=== PATIENT | male | born 1975 | race Caucasian/White ===

== ENCOUNTER 2017-01-06 11:40 | Day surgery (SDC) | payer BC ==
--- NOTE | 2016-12-30 10:47 | HP ---
Chief Complaint - Chief Complaint Date of Service: 12/30/16 Chief Complaint: Those lumps are back and are getting bigger. History of Present Illness: Progressive enlarging masses over the past ten years....they just "pop up" but never go away and usually get more painful as they enlarge. Occasionally interfere with work and certain activities----mostly causing pain. He was watching most of these but one came up on the chest rather quickly and was more painful so he wanted to have them checked. Regular provider is [facility], but his insurance company said he did not need a referral and called me. No other family members have had these. He does not remember exactly when the others were removed and the hospital records do not go julee that far. They all were benign as far as he remembers. No other health issues, and none of these masses have become infected. - Patient's Past Medical History Patient History - Medical: Anxiety, Hypothyroidism, Migraines Patient History - Cardiac/Respiratory: No pertinent hx Patient History - Cancer: No Hx of Cancer Patient History - Surgical Procedures: Appendectomy, T & A - also deviated septum 2011, Other - lipomas removed//// hernia (right) 2009? - Family History Family History:: no untoward family reactions to anesthesia, no familial bleeding tendencies, no family history of clotting disorders, no family history of premature - Family History Mother Family History - Medical: No pertinent hx - Social History Living Situations: home Abuse History: No History of abuse Psych History: Hx of Anxiety Does anyone smoke in the home?: No Smoking Status: Former smoker Have you smoked in the past 12 months: No Alcohol Use: occasionally Drug Use: none - Immunizations Immunizations Up to Date: Yes Hx Pneumococcal Vaccination: No History of Influenza Vaccine: No Review Of Systems (GEN) - Review of Systems Generalized/Overall Review: Absent: Weakness, Malaise, Weight loss EENTM: Present: No Symptoms Reported Respiratory: Absent: Cough, Shortness of Breath Cardiac: Present: No Symptoms Reported Abdominal: Absent: Nausea, Vomiting, Abdominal Pain Genitourinary: Present: No Symptoms Reported Musculoskeletal: Absent: Joint Pain, Back Pain, Muscle Pain, Neck Pain Neurological: Absent: Headache, Numbness, Tingling, Tremors Skin: Present: Lumps - he has counted 15 lumps that he has been watching and/or is bothered by. Absent: Bruising Endocrine: Absent: Increased Hunger, Flushing, Increased Thirst Immunizations: IMMUNIZATION HX Immunizations Up to Date Yes History of Influenza Vaccine No Hx Pneumococcal Vaccination No Allergies/Adverse Reactions: Allergies Allergy/AdvReac Type Severity Reaction Status Date / Time cephalexin [Cephalexin] Allergy Severe rash Verified 12/25/12 08:47 niacin Allergy Severe rash Verified 12/25/12 08:47 [From Niaspan Extended-Release] Home Medications: HOME MEDICATIONS Levothyroxine Sodium [Synthroid] 150 mcg PO DAILY 12/25/12 [Last Taken 12/30/16] Alprazolam 12/11/14 [Last Taken Unknown] Dextroamphetamine/Amphetamine [Adderall 10 mg Tablet] 1 tab PO DAILY 12/30/16 [ Last Taken Unknown] Exam - Exam Vital Signs: Vital Signs - Last Taken Temp 36.8 C 12/30/16 Pulse 66 Resp 15 BP 125/75 08/30/16 21:19 Pulse Ox HT and weight put into [facility] system today Constitutional: Present: Alert, Oriented x3, Cooperative, Well developed, No distress, Looks Younger than stated age ENT Exam: Present: normal ENT inspection, hearing grossly normal, pharynx normal , TMs normal Eye Exam: bilateral eye: normal inspection Neck: Present: non-tender, full range of motion, normal inspection. Absent: lymphadenopathy (R), lymphadenopathy (L), thyromegaly Back Exam: Present: no CVA tenderness, other - see skin exam Breasts: Absent: Nontender Respiratory: Present: chest non-tender, lungs clear, normal breath sounds, no respiratory distress, no accessory muscle use, No rales, No wheezing Cardiovascular/Chest: Present: normal peripheral pulses, regular rate, rhythm, no chest tenderness, no edema, no murmur, other - see skin exam Peripheral Pulses: radial (R): 2+, radial (L): 2+ Abdomen: Present: Normal bowel sounds, soft, nontender, nondistended, other - see skin exam /Rectal: Present: External genitalia normal Extremity: Present: normal range of motion, non-tender, normal inspection, no calf tenderness, other - see skin exam Skin Exam: Present: normal color, warm/dry, no cyanosis, other - He has 14 lipomatous masses on his body. One on right chest wall, tender, mobile and about 1 cm Multiple on the upper extremities, all about 1 cm and mobile, mild tender to palpation and no oveerlying skin changes. 3-5 masses on the left lower abdomen and right mid to lower back. These arre slightly larger by palpation and less mobile, but all less than 2cm. There are three masses on the right inner thigh. Mobile and about 1.5 cm or less. These are slightly more tender and no signs of overlying skin changes or redness. Absent: jaundice, mottled, skin rash Lymphatic: Present: no adenopathy Neurologic: Present: no motor/sensory deficits, alert, normal mood/affect, oriented x 3. Absent: abnormal gait, motor weakness, sensory deficit, depressed affect Appearance: Present: appropriate appearance, appropriate insight, neat Eye contact: Present: cooperative, good eye contact, normal speech Thoughts: Present: normal thought pattern, no apparent hallucination, normal mood /affect Assessment/Plan - Assessment/Plan (1) Hypothyroid Problem: Chronic Qualifiers: Hypothyroidism type: unspecified Qualified Code(s): E03.9 - Hypothyroidism , unspecified (2) Multiple lipomas Assessment: Because of the enlarging, symptomatic lipomatous masses (15 counted today in office) that are too numerous to remove in the office, along with the fact he has had this done under sedation before (some anxiety history/issues), we are scheduling these to be excised in the OR under sedation and local anesthesia. DOMENIC discussed and he agrees. Low likelihood of post op infection, but he should not shave these area anymore until surgery. Anesthesia will meet with him the day of the procedure. He understands that he may develop more of these in the future. And the fact the the possibility of malignant transformation is very unlikely. Problem: Acute
[~2017-01-06 11:40] MED LIST: RINGERS SOLUTION,LACTATED 1,000 ML IV PRN
[2017-01-06] MEDS ORDERED: BUPIVACAINE HCL/EPINEPHRINE 50 ML VIAL IJ ONE (14:15)
[2017-01-06] MEDS ORDERED: oxyCODONE HCL/ACETAMINOPHEN 1 TAB TABLET PO PRN (14:56)
[2017-01-06] MEDS ORDERED: RINGERS SOLUTION,LACTATED 1,000 ML IV PRN (14:56)
--- NOTE | 2017-01-06 15:03 | OR ---
Operative Report - Dictated Report Narrative: DATE OF PROCEDURE: 01/06/2017 SURGEON: Nasir Chirinos M.D. FACS [employer]: None ANESTHESIA: Naun Acevedo CRNA sedation plus local anesthetic by myself 0.5% Marcaine plus epinephrine PREOPERATIVE DIAGNOSIS: Multiple enlarging symptomatic lipomatous masses on the torso and extremities (14) POSTOPERATIVE DIAGNOSIS: Same pending final pathology OPERATION: Excision of lipomatous masses on torso and extremities, 14 and moved through 13 incisions, all less than 1 cm INDICATIONS: This is a 41 -year-old male who presents with a progressive enlargement of subcutaneous nodules, on the arms torso and leg. These became more painful over the past few months, and one on the chest has enlarged rapidly. He has seen me previously for this and has had some removed, and they have been benign. Risks, benefits, indications, contraindications were discussed with the patient and he understood, agreed and wished to proceed. FINDINGS: Multiple lipomatous type masses, most well-circumscribed and easily to shell out, on the torso and extremities. PROCEDURE: She was brought in the operating theater and placed into the left lateral decubitus position. He was given sedation per CHANDA. The previously marked lipomatous skin masses were once again examined, and the ones on the back were prepped and draped Betadine. Appropriate timeout was performed. 0.5 % Marcaine was used throughout the case to infiltrate the skin a subtenon's tissue overlying these masses. A small incision was made over each of the masses, and using a small curved clamp the lipomatous masses were brought into the wound and then either removed bluntly or with left cautery at the base. There was good hemostasis. Wounds were examined for any other lipomatous masses. The wounds were then closed with buried interrupted 4-0 Vicryl. Tincture and Steri-Strips were placed. After the ones on the back were removed , the patient was then laid flat in the supine position for the rest the procedure. There were 4 on the right inner thigh, 2 on the abdomen, one on the chest, one on the left arm, and 2 on the right arm. One incision was made on the left lower abdomen and both lipomatous masses were removed through that incision. Therefore 14 masses removed through 13 incisions. Once they were all closed, Steri-Strips, bandages were applied and the patient was awakened. POSTOPERATIVE CONDITION: The patient went to [facility] in good condition Estimated blood loss: <5ml Specimen: Together in the same container Drains:None Findings are discussed with the patient's family. Later the patient also received the same information.
[2017-01-06] MEDS ORDERED: ONDANSETRON HCL/PF 2 MG/ML VIAL IV ONE (15:15)
[2017-01-06 15:51] VITALS: BP 144/77
== END 2017-01-06 11:41 | disposition home or self-care (01) ==
LOC: AMB 11:40
PROVIDERS: ATTEND Surgery
PROC: 0HB5XZZ Excision of Chest Skin, External Approach (ICD-10-PCS; 2017-01-06)
PROC: 0HB6XZZ Excision of Back Skin, External Approach (ICD-10-PCS; 2017-01-06)
PROC: 0HBEXZZ Excision of Left Lower Arm Skin, External Approach (ICD-10-PCS; 2017-01-06)
PROC: 0HBDXZZ Excision of Right Lower Arm Skin, External Approach (ICD-10-PCS; 2017-01-06)
PROC: 0HB7XZZ Excision of Abdomen Skin, External Approach (ICD-10-PCS; principal; 2017-01-06 14:45)
DX: D17.1 Benign lipomatous neoplasm of skin and subcutaneous tissue of trunk (principal); D17.22 Benign lipomatous neoplasm of skin and subcutaneous tissue of left arm; D17.21 Benign lipomatous neoplasm of skin and subcutaneous tissue of right arm; D17.23 Benign lipomatous neoplasm of skin and subcutaneous tissue of right leg; E03.9 Hypothyroidism, unspecified; F41.9 Anxiety disorder, unspecified; Z87.891 Personal history of nicotine dependence; Z68.23 Body mass index [BMI] 23.0-23.9, adult

== ENCOUNTER 2017-01-27 20:21 | Emergency (ER) | payer BC ==
[2017-01-27 20:32] VITALS: BP 138/93
== END 2017-01-27 20:35 | disposition left against medical advice (07) ==
LOC: ER 20:21
DX: Z13.6 Encounter for screening for cardiovascular disorders (principal)